=== PATIENT | female | born 1960 | race Caucasian/White ===

== ENCOUNTER 2018-05-25 20:08 | Emergency (ER) | payer BC, OTHER ==
[~2018-05-25] VITALS: Ht 152.4 cm; Wt 66.0 kg
[2018-05-25] MEDS ORDERED: KETOROLAC 60MG/2ML VIAL IM STA (21:15)
[2018-05-25 21:45] LABS: EOSINOPHILS % 4.2 % (0.0-5.0); HEMATOCRIT. 36.7 % (36.0-48.0); HEMOGLOBIN. 12.1 g/dL (12.0-16.0); LYMPHOCYTES % 45.9 % (20.0-50.0); MEAN CORPUSCULAR VOLUME 85.2 fL (81.0-99.0); MEAN PLATELET VOLUME 7.7 fl (7.4-10.4); MONOCYTES % 7.6 % (2.0-8.0); NEUTROPHILS % 41.3 % (40.0-76.0); PLATELET 286 x1000/uL (130-400); RED BLOOD CELL COUNT 4.31 mill/uL (4.2-5.4)
[2018-05-25 21:49] LABS: CHLORIDE 99 mEq/L (98-107)
[2018-05-25 21:56] LABS: CLARITY URINE CLOUDY (CLEAR); COLOR URINE YELLOW (YELLOW); KETONES URINE NEGATIVE (NEGATIVE); LEUKOCYTE ESTERASE URINE NEGATIVE (NEGATIVE); NITRITE URINE NEGATIVE (NEGATIVE); OCCULT BLOOD URINE NEGATIVE (NEGATIVE); PROTEIN URINE NEGATIVE (NEGATIVE); SPECIFIC GRAVITY URINE 1.021 (1.005-1.030); UROBILINOGEN URINE 0.2 E.U./dL (0.2-1.0)
[2018-05-26 00:48] VITALS: BP 120/80
== END 2018-05-26 00:51 | disposition home or self-care (01) ==
LOC: ER 20:08
DX: R10.9 Unspecified abdominal pain (principal); D25.9 Leiomyoma of uterus, unspecified; Z78.0 Asymptomatic menopausal state
CPT/HCPCS: 36415; 74176; 80053; 81003; 85025; 96372; 99285; J1885; Z7610